=== PATIENT | female | born 1935 | race Caucasian/White ===

== ENCOUNTER 2018-06-10 12:04 | Inpatient (IN) | payer OTHER ==
[2018-06-10] MEDS ORDERED: ACETAMINOPHEN 325 MG TAB PO PRN (14:24)
--- NOTE | 2018-06-10 15:58 | GHP ---
[f rep st] HISTORY AND PHYSICAL POST ADMISSION PHYSICIAN EVALUATION AND REHABILITATION TREATMENT PLAN DATE OF ADMISSION: 06/10/2018 DATE OF EVALUATION: 06/10/2018. TIME OF EVALUATION: 1335 hours. REFERRING FACILITY: [facility]. REFERRING PHYSICIAN: Dr. Gonzalez IMPAIRMENT GROUP: 1.1. DATE OF ONSET: 06/04/2008. CONSULTING PHYSICIAN: She was seen by neurologist, Dr. Beckford. 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 ETIOLOGIC DIAGNOSIS: Left body involvement (right brain) HISTORY OF PRESENT ILLNESS: This patient was admitted to [facility] on 06/04/2018, with a 2-day history of left-sided facial droop, left-sided weakness and slurred speech. Head CT ruled out intracranial hemorrhage and CT angiogram ruled out large vessel blockage. She had a brain MRI, which showed an acute lacunar infarction in the right posterior internal capsule. Further evaluation included an echocardiogram which ruled out an intracardiac shunt and showed an ejection fraction of 60% to 65%. She had trivial mitral and tricuspid valve regurgitation. There were no dysrhythmias seen on telemonitoring. With a 2-day history of prior symptoms, she was out of the window for thrombolytics. She was seen by Neurology and begun on aspirin at 81 mg per day and clopidogrel 75 mg daily for 1 month. Following that month, she is to stop the clopidogrel and continue aspirin at 325 mg daily. She was started on atorvastatin. Hospital discharge was delayed for a day pending insurance approval, but she was medically stable and finally approved to come to inpatient rehabilitation. LABORATORIES AND STUDIES: During her stay: CBC on 06/09 was completely normal. CBC was also normal on the day of admission, 06/10/2018. Basic metabolic profile on 06/04/2018 was overall within normal limits. She had a slightly elevated glucose at 109, but this was likely not fasting. Liver function tests were normal. Lipid panel showed total cholesterol of 149, an HDL of 44 and an LDL of 98. Troponin was negative. CBC and basic metabolic profile were also unremarkable on 06/07/2018. PRECAUTIONS: She is a fall risk. ACTIVE COMORBIDITIES: She has the tier 3 comorbidity of hemiparesis with left- sided weakness and morbid obesity plus hypertension. She otherwise has no tier 1, tier 2 or tier 3 comorbidities. PAST MEDICAL HISTORY: 1. Hypertension. 2. Seasonal allergies, which she has year-round. 3. Gastroesophageal reflux disorder. 4. Irritable bowel syndrome. 5. Degenerative joint disease. PAST SURGICAL HISTORY: 1. Cholecystectomy. 2. Hysterectomy. 3. Bilateral knee replacement. 4. Tonsillectomy. PRE-HOSPITAL MEDICATIONS: 1. Aspirin 81 mg p.o. daily. 2. Cetirizine 10 mg p.o. at bedtime. 3. Fexofenadine 100 mg p.o. daily. She reports she alternates with cetirizine every few months. 4. Fluoxetine 40 mg p.o. daily. 5. Metoprolol succinate 50 mg p.o. daily. 6. Multivitamin 1 p.o. daily. 7. Naphazoline/pheniramine 1 drop both eyes twice daily as needed for allergy symptoms. 8. Naproxen 440 mg p.o. daily p.r.n. 9. Omeprazole/sodium bicarbonate 1 capsule p.o. before breakfast. ADMISSION MEDICATIONS: 1. Aspirin 81 mg p.o. daily. 2. Atorvastatin 10 mg p.o. at bedtime. 3. Cetirizine 200 mg p.o. at bedtime. 4. Clopidogrel 75 mg p.o. daily, which should continue through 07/03. 5. Fluoxetine 40 mg p.o. daily. 6. Metoprolol succinate 50 mg p.o. daily. 7. Multivitamin 1 p.o. daily. 8. Naphazoline/pheniramine 1 drop each eye twice daily p.r.n. 9. Pantoprazole 20 mg p.o. daily. ALLERGIES: There are no known drug allergies. SOCIAL HISTORY: She lives alone. She has a local daughter. She is a . She had 5 children. 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 She does not use alcohol, tobacco, or other recreational drugs. FAMILY HISTORY: Her father had a stroke. REVIEW OF SYSTEMS: She reports a dry mouth. She has a broken tooth from the fall. She reports that she feels tired and can fall asleep at any time. She, however, reports that she sleeps well, though she was interrupted in the hospital for hospital cares. She is not in pain. She denies cough or dyspnea. She denies nausea, vomiting, constipation, or diarrhea. She denies dysuria or urinary frequency. She denies joint pain or joint swelling. She is aware of some weakness on the left side and of the left facial droop. She is also aware of slurred speech and difficulty finding words. Otherwise, a 10-point review of systems is negative. PHYSICAL EXAMINATION: VITAL SIGNS: Vitals are not yet available in the chart. GENERAL: This is an obese woman, appears her chronologic age, sitting in a chair, dressed in street clothes cooperative and in no distress. HEENT: Extraocular movements are intact. Pupils are equal, round, reactive to light. Dentition is in good condition except for a broken left upper incisor. She has a moderately crowded airway, Mallampati class 3. NECK: Supple. HEART: There is a regular rate and rhythm with no murmurs, rubs, or gallops. There is no JVD and no edema. LUNGS: Clear to auscultation bilaterally. ABDOMEN: Soft, nontender, normoactive bowel sounds, non-distended, no hepatosplenomegaly. EXTREMITIES: There is no cyanosis, clubbing, or edema. Radial and dorsalis pedis pulses are 2+ bilaterally. NEUROLOGIC: She is alert and oriented x3. She has a left facial droop which is more likely due to her infarct than to any cranial nerves abnormalities. Cranial nerves 2-12 are otherwise grossly intact. Her strength is 4+/5 at the left hand peoplesoft developer and otherwise 5/5 overall on the left and right upper extremities. In the lower extremities, strength is 4/5 on the left hip flexor and quadriceps and hamstrings. Otherwise, strength is 5/5 overall in the lower extremities. Sensation is intact to light touch. Deep tendon reflexes are 2+ bilaterally at the biceps, patellar, and Achilles tendons. Plantar reflex is indeterminate. There is no pronator drift. Finger- to-nose testing reveals slow movement and minor inaccuracy with the left upper extremity and is normal in the right upper extremity. CURRENT LEVEL OF FUNCTION: Per the pre-admission screen, she was on a regular diet with thin liquids. She required contact guard assist for transfers for ADLs. Bed mobility was independent with the head of the bed flat. Transfers required minimal assist with voice cues for using a front-wheeled walker. She scored 14/28 on the Tinetti Balance Test, corresponding with a high fall risk. Endurance was. Sair she was able to ambulate 250 feet with contact guard to minimal assist and voice cues to medicinal plant picker her left lower extremity because of a left foot drag. She needed assistance to maneuver the front-wheeled walker. Regarding cognition, she was noted to have a decreased memory. On today's exam, there are no significant changes per the pre-admission screen. IMPRESSION: This is an 83-year-old woman who suffered a right posterior internal capsule cerebrovascular accident and presented to [facility] on 06/04/2018, after 2 days of symptoms. She also suffered a fall in which she broke her left upper incisor. Evaluation ruled out cardiac source of embolus. Aspirin dose was augmented with clopidogrel 75 mg daily, which is to be continued through 07/03/2018, after which she is to discontinue clopidogrel and increase aspirin to 325 mg daily. She was also begun on atorvastatin. She needed no augmentation of her metoprolol for blood pressure control. She was participating in therapies and appropriate for inpatient rehabilitation. Her goal is to complete a rehabilitation stay, and then return home with support of her family and supportive services. For a safe discharge, she will need to be able to advance to the supervision level for bathing and stairs and independence for all other ADLs and mobility. She will be using the least restrictive device for ambulation. She will have insights into her cognitive deficits, and she will need to be able to use compensatory strategies. She will have therapies with Physical Therapy, Occupational Therapy, and Speech and Language Pathology for 60 minutes per day on 5-7 days of the week for each discipline. Her expected duration of stay is 5-7 days. It is anticipated that upon discharge, she will continue to benefit from home health services including a nurse, Speech and Language Pathology, Occupational Therapy, and Physical Therapy. Additionally, she will likely benefit from a stroke support group. PLAN: 1. Right posterior internal capsule CVA with left weakness and reduced balance and fall risk. PT and OT to optimize mobility and activities of daily living towards the supervision to independent level. 2. Memory loss and possibly other cognitive issues. These may be preexisting as she had severe microvascular ischemic change on CT brain imaging. She will have evaluation and treatment per Speech and Language Pathology. 3. Secondary prevention of CVA. Continue blood pressure control with metoprolol, continue atorvastatin, continue aspirin at 81 mg and clopidogrel at 75 mg daily through 07/03, after which she is to stop the clopidogrel and increase the aspirin dose to 325 mg. 4. Allergic conjunctivitis and rhinitis. Continue medications with cetirizine 20 mg at bedtime and with naphazoline/pheniramine eyedrops as needed. 5. Gastroesophageal reflux disorder and irritable bowel syndrome. She was previously on a combination of omeprazole and sodium bicarbonate. Per hospital formulary, we will substitute pantoprazole 40 mg daily and sodium bicarbonate 650 g daily. As is her usual practice at home, these will be dosed at 6 in the morning, approximately 2 hours prior to breakfast. 6. Anxiety/depression. Continue fluoxetine, which may also aid in neuro recovery post CVA. 7. Degenerative joint disease, status post bilateral knee replacements. She was previously taking naproxen, but now that she is also on aspirin plus clopidogrel, NSAIDs are relatively contraindicated. We will prescribe acetaminophen 650 mg q.6 hours p.r.n. 8. Somnolence. Unclear history whether the extent to which this was pre- existing. During history taking, she initially reported that she did not nap at home and then she reported that she does nap at home. She will be observed for adequacy of sleep and for sufficient alertness through the day to participate in therapies. FOLLOWUP: She is to see Dr. Beckford, Neurology, in 3-4 weeks. Primary care provider is Mariam Chiang, Nurse Practitioner. /[id number]/MODL MTDD
[2018-06-10] MEDS: CETIRIZINE 10 MG TAB PO SCH (20:55)
[2018-06-10] MEDS: ATORVASTATIN CALCIUM 10 MG TAB PO SCH (20:55)
[2018-06-11] MEDS: SODIUM BICARBONATE 650 MG TAB PO SCH (05:12)
[2018-06-11] MEDS: PANTOPRAZOLE SODIUM 40 MG TAB PO SCH (05:13)
[2018-06-11] MEDS: MULTIVITAMINS 1 EACH TAB PO SCH (08:42)
[2018-06-11] MEDS: CLOPIDOGREL BISULFATE 75 MG TAB PO SCH (08:42)
[2018-06-11] MEDS: METOPROLOL SUCCINATE XR 50 MG TAB PO SCH (08:42)
[2018-06-11] MEDS: ASPIRIN 81 MG CHEWABLE TAB PO SCH (08:42)
[2018-06-11] MEDS: FLUoxetine 20 MG CAP PO SCH (08:42)
[2018-06-11] MEDS ORDERED: PANTOPRAZOLE SODIUM 40 MG TAB PO SCH (09:00)
--- NOTE | 2018-06-11 12:07 | SOAPPROG ---
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 PT and OT to optimize mobility and activities of daily living towards the supervision to independent level. Memory loss and possibly other cognitive issues. These may be preexisting as she had severe microvascular ischemic change on CT brain imaging. She will have evaluation and treatment per Speech and Language Pathology. * She is not on any sedating medications. Secondary prevention of CVA. Continue blood pressure control with metoprolol, continue atorvastatin, continue aspirin at 81 mg and clopidogrel at 75 mg daily through 07/03, after which she is to stop the clopidogrel and increase the aspirin dose to 325 mg. Allergic conjunctivitis and rhinitis. Continue medications with cetirizine 20 mg at bedtime and with naphazoline/pheniramine eyedrops as needed. Gastroesophageal reflux disorder and irritable bowel syndrome. She was previously on a combination of omeprazole and sodium bicarbonate. Per hospital formulary, we will substitute pantoprazole 40 mg daily and sodium bicarbonate 650 g daily. As is her usual practice at home, these will be dosed at 6 in the morning, approximately 2 hours prior to breakfast. Anxiety/depression. Continue fluoxetine, which may also aid in neuro recovery post CVA. Degenerative joint disease, status post bilateral knee replacements. She was previously taking naproxen, but now that she is also on aspirin plus clopidogrel , NSAIDs are relatively contraindicated. We will prescribe acetaminophen 650 mg q.6 hours p.r.n. Somnolence. Unclear history whether the extent to which this was pre-existing. During history taking, she initially reported that she did not nap at home and then she reported that she does nap at home. She will be observed for adequacy of sleep and for sufficient alertness through the day to participate in therapies. FOLLOWUP: She is to see Dr. Beckford, Neurology, in 3-4 weeks. Primary care provider is Mariam Chiang, Nurse Practitioner. 06/11/18 14:02 Subjective: Complains of feeling foggy, and having word-finding difficulty. She reports she slept well. No fevers or chills, no cough or dyspnea, no dysuria. Objective: Vital Signs Temp Pulse Resp BP Pulse Ox 36.4 C 64 16 131/75 H 96 06/11/18 08:40 06/11/18 08:42 06/11/18 08:40 06/11/18 08:42 06/11/18 08:40 06/10/18 06/11/18 06/12/18 05:59 05:59 05:59 Intake Total 560 480 Output Total 1100 Balance -540 480 Physical Exam - Physical Exam General Appearance: WD/WN, alert, no apparent distress Respiratory: normal breath sounds, No crackles, No rhonchi, No wheezing Cardiac/Chest: regular rate, rhythm, No edema, No diastolic murmur, No systolic murmur Skin: normal color, warm/dry Neuro/Psych: alert, normal mood/affect, oriented x 3 ICD10 Worksheet Patient Problems: Problems Problem Status Onset Cerebrovascular accident (CVA) of right basal ganglia Acute
--- NOTE | 2018-06-11 12:08 | PDOREHIP ---
Admission [facility] - Admission - 3 Day Assessment Period Admission Date/Day 1: 06/10/18 Day 2: 06/11/18 Day 3: 06/12/18 - Active Diagnoses Comorbidities and Co-existing Conditions at Admission: 21361. None of the Above - Skin Conditions Unhealed Pressure Ulcer (1 or more/Stage 1 or >)-Admission: 0. No # Stage 1 Pressure Ulcers-Admission: 0 # Stage 2 Pressure Ulcers-Admission: 0 # Stage 3 Pressure Ulcers-Admission: 0 # Stage 4 Pressure Ulcers-Admission: 0 # Unstageable Pressure Ulcers (Non-remove Dress)-Admission: 0 # Unstageable Pressure Ulcers (Slough/Eschar)-Admission: 0 # Unstageable Pressure Ulcers (Deep Tissue Injury)-Admission: 0
[2018-06-11] MEDS: CETIRIZINE 10 MG TAB PO SCH (20:09)
[2018-06-11] MEDS: ATORVASTATIN CALCIUM 10 MG TAB PO SCH (20:10)
[2018-06-12] MEDS: PANTOPRAZOLE SODIUM 40 MG TAB PO SCH (06:26)
[2018-06-12] MEDS: SODIUM BICARBONATE 650 MG TAB PO SCH (06:26)
[2018-06-12] MEDS: ASPIRIN 81 MG CHEWABLE TAB PO SCH (09:06)
[2018-06-12] MEDS: MULTIVITAMINS 1 EACH TAB PO SCH (09:07)
[2018-06-12] MEDS: CLOPIDOGREL BISULFATE 75 MG TAB PO SCH (09:07)
[2018-06-12] MEDS: FLUoxetine 20 MG CAP PO SCH (09:07)
[2018-06-12] MEDS: METOPROLOL SUCCINATE XR 50 MG TAB PO SCH (09:08)
--- NOTE | 2018-06-12 10:27 | SOAPPROG ---
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 * Contact guard assist for mobility related ADLs. Has left foot drop with ambulation. * Continue PT and OT to optimize mobility and activities of daily living towards the supervision to independent level. Memory loss and possibly other cognitive issues. These may be preexisting as she had severe microvascular ischemic change on CT brain imaging. * She is not on any sedating medications. * MOCA on 06/11/2018 * Continue CLUBHOUSE MANAGER. Secondary prevention of CVA. Continue blood pressure control with metoprolol, continue atorvastatin, continue aspirin at 81 mg and clopidogrel at 75 mg daily through 07/03, after which she is to stop the clopidogrel and increase the aspirin dose to 325 mg. Allergic conjunctivitis and rhinitis. Continue medications with cetirizine 20 mg at bedtime and with naphazoline/pheniramine eyedrops as needed. Gastroesophageal reflux disorder and irritable bowel syndrome. She was previously on a combination of omeprazole and sodium bicarbonate. Per hospital formulary, we will substitute pantoprazole 40 mg daily and sodium bicarbonate 650 g daily. As is her usual practice at home, these will be dosed at 6 in the morning, approximately 2 hours prior to breakfast. Anxiety/depression. Continue fluoxetine, which may also aid in neuro recovery post CVA. Degenerative joint disease, status post bilateral knee replacements. She was previously taking naproxen, but now that she is also on aspirin plus clopidogrel , NSAIDs are relatively contraindicated. Continue acetaminophen 650 mg q.6 hours p.r.n.; not used. Somnolence. Unclear history whether the extent to which this was pre-existing. During history taking, she initially reported that she did not nap at home and then she reported that she does nap at home. She will be observed for adequacy of sleep and for sufficient alertness through the day to participate in therapies. FOLLOWUP: She is to see Dr. Beckford, Neurology, in 3-4 weeks. Primary care provider is Mariam Chiang, Nurse Practitioner. 06/12/18 10:24 Subjective: No complaints. Not in pain. Sleeping well. No cough or dyspnea, no fevers or chills. Objective: Vital Signs Temp Pulse Resp BP Pulse Ox 36.4 C 72 16 107/65 94 06/12/18 06:27 06/12/18 09:08 06/12/18 06:27 06/12/18 09:08 06/12/18 06:27 06/11/18 06/12/18 06/13/18 05:59 05:59 05:59 Intake Total 560 1760 Output Total 1100 600 Balance -540 1160 Physical Exam - Physical Exam General Appearance: WD/WN, alert, no apparent distress Respiratory: No respiratory distress, No accessory muscle use Cardiac/Chest: regular rate, rhythm, No edema, No diastolic murmur, No systolic murmur Skin: normal color, warm/dry Neuro/Psych: alert, normal mood/affect, oriented x 3 ICD10 Worksheet Patient Problems: Problems Problem Status Onset Cerebrovascular accident (CVA) of right basal ganglia Acute
[2018-06-12] MEDS: CETIRIZINE 10 MG TAB PO SCH (19:20)
[2018-06-12] MEDS: ATORVASTATIN CALCIUM 10 MG TAB PO SCH (19:20)
[2018-06-13] MEDS: PANTOPRAZOLE SODIUM 40 MG TAB PO SCH (05:39)
[2018-06-13] MEDS: SODIUM BICARBONATE 650 MG TAB PO SCH (05:39)
[2018-06-13] MEDS: METOPROLOL SUCCINATE XR 50 MG TAB PO SCH (08:40)
[2018-06-13] MEDS: FLUoxetine 20 MG CAP PO SCH (08:40)
[2018-06-13] MEDS: CLOPIDOGREL BISULFATE 75 MG TAB PO SCH (08:41)
[2018-06-13] MEDS: MULTIVITAMINS 1 EACH TAB PO SCH (08:41)
[2018-06-13] MEDS: ASPIRIN 81 MG CHEWABLE TAB PO SCH (08:41)
--- NOTE | 2018-06-13 12:06 | HOSPPROG ---
Hospitalist Progress Note Assessment/Plan: Right posterior internal capsule CVA with left weakness and reduced balance and fall risk. * Contact guard assist for mobility related ADLs. Has left foot drop with ambulation. * Continue PT and OT to optimize mobility and activities of daily living towards the supervision to independent level. Memory loss and possibly other cognitive issues. These may be preexisting as she had severe microvascular ischemic change on CT brain imaging. * She is not on any sedating medications. * MOCA on 06/11/2018 * Continue BUCKLE STAPLER. Secondary prevention of CVA. Continue blood pressure control with metoprolol, continue atorvastatin, continue aspirin at 81 mg and clopidogrel at 75 mg daily through 07/03, after which she is to stop the clopidogrel and increase the aspirin dose to 325 mg. Allergic conjunctivitis and rhinitis. Continue medications with cetirizine 20 mg at bedtime and with naphazoline/pheniramine eyedrops as needed. Gastroesophageal reflux disorder and irritable bowel syndrome. She was previously on a combination of omeprazole and sodium bicarbonate. Per hospital formulary, we will substitute pantoprazole 40 mg daily and sodium bicarbonate 650 g daily. As is her usual practice at home, these will be dosed at 6 in the morning, approximately 2 hours prior to breakfast. Anxiety/depression. Continue fluoxetine, which may also aid in neuro recovery post CVA. Degenerative joint disease, status post bilateral knee replacements. She was previously taking naproxen, but now that she is also on aspirin plus clopidogrel , NSAIDs are relatively contraindicated. Continue acetaminophen 650 mg q.6 hours p.r.n.; not used. Somnolence. Unclear history whether the extent to which this was pre-existing. During history taking, she initially reported that she did not nap at home and then she reported that she does nap at home. She will be observed for adequacy of sleep and for sufficient alertness through the day to participate in therapies. FOLLOWUP: She is to see Dr. Beckford, Neurology, in 3-4 weeks. Primary care provider is Mariam Chiang, Nurse Practitioner. Subjective: feeling sleepy for last few days Objective: Vital Signs Temp Pulse Resp BP Pulse Ox 36.5 C 70 14 132/80 H 92 06/13/18 05:44 06/13/18 08:40 06/13/18 05:44 06/13/18 08:40 06/13/18 05:44 06/12/18 06/13/18 06/14/18 05:59 05:59 05:59 Intake Total 1760 840 480 Output Total 600 0 Balance 1160 840 480 - Physical Exam Constitutional: no apparent distress, appears nourished, not in pain Eyes: anicteric sclera Ears, Nose, Mouth, Throat: moist mucous membranes Cardiovascular: regular rate and rhythym, no murmur, rub, or gallop Respiratory: no respiratory distress, no rales or rhonchi Gastrointestinal: normoactive bowel sounds, soft, non-tender abdomen, no palpable masses Skin: warm Musculoskeletal: full muscle strength, no muscle tenderness, normal joint ROM ICD10 Worksheet Patient Problems: Problems Problem Status Onset Cerebrovascular accident (CVA) of right basal ganglia Acute
[2018-06-13] MEDS: ATORVASTATIN CALCIUM 10 MG TAB PO SCH (20:07)
[2018-06-14] MEDS: PANTOPRAZOLE SODIUM 40 MG TAB PO SCH (05:47)
[2018-06-14] MEDS: SODIUM BICARBONATE 650 MG TAB PO SCH (05:47)
[2018-06-14] MEDS: ASPIRIN 81 MG CHEWABLE TAB PO SCH (08:30)
[2018-06-14] MEDS: FLUoxetine 20 MG CAP PO SCH (08:30)
[2018-06-14] MEDS: METOPROLOL SUCCINATE XR 50 MG TAB PO SCH (08:30)
[2018-06-14] MEDS: MULTIVITAMINS 1 EACH TAB PO SCH (08:30)
[2018-06-14] MEDS: CLOPIDOGREL BISULFATE 75 MG TAB PO SCH (08:30)
[2018-06-14] MEDS ORDERED: CETIRIZINE 10 MG TAB PO SCH (15:41)
--- NOTE | 2018-06-14 15:41 | HOSPPROG ---
Hospitalist Progress Note Assessment/Plan: Right posterior internal capsule CVA with left weakness and reduced balance and fall risk. * Contact guard assist for mobility related ADLs. Has left foot drop with ambulation. * Continue PT and OT to optimize mobility and activities of daily living towards the supervision to independent level. Memory loss and possibly other cognitive issues. These may be preexisting as she had severe microvascular ischemic change on CT brain imaging. * She is not on any sedating medications. * MOCA on 06/11/2018 * Continue COUNTER POCKET SEWER. Secondary prevention of CVA. Continue blood pressure control with metoprolol, continue atorvastatin, continue aspirin at 81 mg and clopidogrel at 75 mg daily through 07/03, after which she is to stop the clopidogrel and increase the aspirin dose to 325 mg. Allergic conjunctivitis and rhinitis. Continue medications with cetirizine 20 mg at bedtime and with naphazoline/pheniramine eyedrops as needed. * WILL DECREASE ZYRTEC DOSE TO 10MG IN CASE CONTRIBUTING TO DAYTIME FATIGUE. MAX DOSE IS 10 MG Gastroesophageal reflux disorder and irritable bowel syndrome. She was previously on a combination of omeprazole and sodium bicarbonate. Per hospital formulary, we will substitute pantoprazole 40 mg daily and sodium bicarbonate 650 g daily. As is her usual practice at home, these will be dosed at 6 in the morning, approximately 2 hours prior to breakfast. Anxiety/depression. Continue fluoxetine, which may also aid in neuro recovery post CVA. Degenerative joint disease, status post bilateral knee replacements. She was previously taking naproxen, but now that she is also on aspirin plus clopidogrel , NSAIDs are relatively contraindicated. Continue acetaminophen 650 mg q.6 hours p.r.n.; not used. Somnolence. Unclear history whether the extent to which this was pre-existing. During history taking, she initially reported that she did not nap at home and then she reported that she does nap at home. She will be observed for adequacy of sleep and for sufficient alertness through the day to participate in therapies. FOLLOWUP: She is to see Dr. Beckford, Neurology, in 3-4 weeks. Primary care provider is Mariam Chiang, Nurse Practitioner. Subjective: had headache but is better. maybe less sleepy today Objective: Vital Signs Temp Pulse Resp BP Pulse Ox 36.5 C 64 14 124/82 H 97 06/14/18 05:48 06/14/18 08:30 06/14/18 05:48 06/14/18 08:30 06/14/18 05:48 06/13/18 06/14/18 06/15/18 05:59 05:59 05:59 Intake Total 840 1430 360 Output Total 0 910 Balance 840 520 360 - Physical Exam Constitutional: no apparent distress, appears nourished, not in pain Eyes: anicteric sclera Ears, Nose, Mouth, Throat: moist mucous membranes, hearing normal, ears appear normal, no oral mucosal ulcers Cardiovascular: regular rate and rhythym, no murmur, rub, or gallop Respiratory: no respiratory distress, no rales or rhonchi, clear to auscultation Gastrointestinal: normoactive bowel sounds, soft, non-tender abdomen, no palpable masses Skin: warm Neurologic: AAOx3 Psychiatric: interacting appropriately, not anxious, not encephalopathic, thought process linear ICD10 Worksheet Patient Problems: Problems Problem Status Onset Cerebrovascular accident (CVA) of right basal ganglia Acute
[2018-06-14] MEDS: ATORVASTATIN CALCIUM 10 MG TAB PO SCH (20:22)
[2018-06-15] MEDS: SODIUM BICARBONATE 650 MG TAB PO SCH (05:47)
[2018-06-15] MEDS: PANTOPRAZOLE SODIUM 40 MG TAB PO SCH (05:47)
[2018-06-15] MEDS: ASPIRIN 81 MG CHEWABLE TAB PO SCH (08:19)
[2018-06-15] MEDS: FLUoxetine 20 MG CAP PO SCH (08:19)
[2018-06-15] MEDS: CLOPIDOGREL BISULFATE 75 MG TAB PO SCH (08:19)
[2018-06-15] MEDS: MULTIVITAMINS 1 EACH TAB PO SCH (08:19)
[2018-06-15] MEDS: METOPROLOL SUCCINATE XR 50 MG TAB PO SCH (08:19)
--- NOTE | 2018-06-15 10:54 | SOAPPROG ---
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 * Independent with bed mobility. Sometimes impulsive at the edge of the bed. Transfers with standby assist to supervision level, cues for hand placement and use of front wheeled walker. Ambulated 300 ft with a front wheeled walker and supervision. Left-sided weakness worsens with fatigue. Climbed and is and descended 18 stairs with standby assist to contact guard assist. Has decreased insight. Standby assist for grooming and hygiene, dressing, shower transfer. Contact guard to standby assist for bathing. Has left foot drop with ambulation. * Continue PT and OT to optimize mobility and activities of daily living towards the supervision to independent level. Memory loss and possibly other cognitive issues. These may be preexisting as she had severe microvascular ischemic change on CT brain imaging. * She is not on any sedating medications. * MOCA on 06/11/2018 * Continue ELEVATOR EXAMINER AND ADJUSTER. Secondary prevention of CVA. Continue blood pressure control with metoprolol, continue atorvastatin, continue aspirin at 81 mg and clopidogrel at 75 mg daily through 07/03, after which she is to stop the clopidogrel and increase the aspirin dose to 325 mg. Allergic conjunctivitis and rhinitis. Cetirizine was reduced from 20 mg at HS to 10 mg at HS due to possible sedating effect. Continue naphazoline/ pheniramine eyedrops as needed. Gastroesophageal reflux disorder and irritable bowel syndrome. She was previously on a combination of omeprazole and sodium bicarbonate. Per hospital formulary, we will substitute pantoprazole 40 mg daily and sodium bicarbonate 650 g daily. As is her usual practice at home, these will be dosed at 6 in the morning, approximately 2 hours prior to breakfast. Anxiety/depression. Continue fluoxetine, which may also aid in neuro recovery post CVA. Degenerative joint disease, status post bilateral knee replacements. She was previously taking naproxen, but now that she is also on aspirin plus clopidogrel , NSAIDs are relatively contraindicated. Continue acetaminophen 650 mg q.6 hours p.r.n.; not used. Somnolence. Improved DISPOSITION: Attended staffing, 15 min. Discussed with case management, nursing, dietitian, PT, OT, ELEVATOR EXAMINER AND ADJUSTER. Lives independently with son living in basement. Family members are intermittently available to help but will provide sufficient supervision. Discharge date set for 06/17/2018. FOLLOWUP: She is to see Dr. Beckford, Neurology, in 3-4 weeks. Primary care provider is Mariam Chiang, Nurse Practitioner. 06/15/18 10:55 Subjective: Complains of her nose running. Reiterates that she typically switches from cetirizine to fexofenadine when 1 stops working. Otherwise without complaints. No cough or dyspnea, no fevers or chills. Objective: Vital Signs Temp Pulse Resp BP Pulse Ox 36.6 C 57 L 16 139/84 H 93 06/15/18 06:07 06/15/18 06:07 06/15/18 06:07 06/15/18 06:07 06/15/18 06:07 06/14/18 06/15/18 06/16/18 05:59 05:59 05:59 Intake Total 1430 1040 Output Total 910 275 Balance 520 765 - Time Spent With Patient Time Spent With Patient: Greater than 35 min floor time today, including more than 50% of time in coordination of care during staffing meeting, and counseling patient. Physical Exam - Physical Exam General Appearance: WD/WN, alert, no apparent distress Respiratory: normal breath sounds, No crackles, No rhonchi, No wheezing Cardiac/Chest: regular rate, rhythm, other (Occasional missed beats on an irregular cycle), No JVD, No diastolic murmur, No systolic murmur Skin: normal color, warm/dry Neuro/Psych: alert, normal mood/affect, oriented x 3, abnormal gait (Left foot drag), facial droop (Mild left facial droop) ICD10 Worksheet Patient Problems: Problems Problem Status Onset Cerebrovascular accident (CVA) of right basal ganglia Acute
[2018-06-15] MEDS: ATORVASTATIN CALCIUM 10 MG TAB PO SCH (20:31)
[2018-06-16] MEDS: SODIUM BICARBONATE 650 MG TAB PO SCH (05:46)
[2018-06-16] MEDS: PANTOPRAZOLE SODIUM 40 MG TAB PO SCH (05:46)
[2018-06-16] MEDS: MULTIVITAMINS 1 EACH TAB PO SCH (08:02)
[2018-06-16] MEDS: CLOPIDOGREL BISULFATE 75 MG TAB PO SCH (08:03)
[2018-06-16] MEDS: METOPROLOL SUCCINATE XR 50 MG TAB PO SCH (08:03)
[2018-06-16] MEDS: FLUoxetine 20 MG CAP PO SCH (08:03)
[2018-06-16] MEDS: ASPIRIN 81 MG CHEWABLE TAB PO SCH (08:08)
[2018-06-16] MEDS: NAPHAZOLINE HCL/PHENIR 15 ML OPHT.BTL EACHEYE PRN (11:14)
--- NOTE | 2018-06-16 12:51 | SOAPPROG ---
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 * Independent with bed mobility. Sometimes impulsive at the edge of the bed. Transfers with standby assist to supervision level, cues for hand placement and use of front wheeled walker. Ambulated 300 ft with a front wheeled walker and supervision. Left-sided weakness worsens with fatigue. Climbed and is and descended 18 stairs with standby assist to contact guard assist. Has decreased insight. Standby assist for grooming and hygiene, dressing, shower transfer. Contact guard to standby assist for bathing. Has left foot drop with ambulation. * Continue PT and OT to optimize mobility and activities of daily living towards the supervision to independent level. Memory loss and possibly other cognitive issues. These may be preexisting as she had severe microvascular ischemic change on CT brain imaging. * She is not on any sedating medications. * MOCA on 06/11/2018 * Continue PINION STAKER. Secondary prevention of CVA. Continue blood pressure control with metoprolol, continue atorvastatin, continue aspirin at 81 mg and clopidogrel at 75 mg daily through 07/03, after which she is to stop the clopidogrel and increase the aspirin dose to 325 mg. Allergic conjunctivitis and rhinitis. Cetirizine was reduced from 20 mg at HS to 10 mg at HS due to possible sedating effect. Continue naphazoline/ pheniramine eyedrops as needed. Gastroesophageal reflux disorder and irritable bowel syndrome. She was previously on a combination of omeprazole and sodium bicarbonate. Per hospital formulary, we will substitute pantoprazole 40 mg daily and sodium bicarbonate 650 g daily. As is her usual practice at home, these will be dosed at 6 in the morning, approximately 2 hours prior to breakfast. Anxiety/depression. Continue fluoxetine, which may also aid in neuro recovery post CVA. Degenerative joint disease, status post bilateral knee replacements. She was previously taking naproxen, but now that she is also on aspirin plus clopidogrel , NSAIDs are relatively contraindicated. Continue acetaminophen 650 mg q.6 hours p.r.n.; not used. Somnolence. Improved DISPOSITION: Lives independently with son living in basement. Family members are intermittently available to help but will provide sufficient supervision. Discharge date set for 06/17/2018. Will have home PT, OT and PINION STAKER. FOLLOWUP: She is to see Dr. Beckford, Neurology, in 3-4 weeks. Primary care provider is Mariam Chiang, Nurse Practitioner. 06/16/18 12:57 Subjective: Complains of fatigue at unpredictable times through the day. Sleeps well and awakens refreshed. Not in pain, no fevers or chills, no cough or dyspnea. Feels she is recover use of her left arm but still has some weakness in the left leg Objective: Vital Signs Temp Pulse Resp BP Pulse Ox 36.8 C 65 16 119/98 H 93 06/16/18 05:44 06/16/18 08:03 06/16/18 05:44 06/16/18 08:03 06/16/18 05:44 06/15/18 06/16/18 06/17/18 05:59 05:59 05:59 Intake Total 1040 240 460 Output Total 275 200 Balance 765 40 460 Physical Exam - Physical Exam General Appearance: WD/WN, alert, no apparent distress Respiratory: No respiratory distress, No accessory muscle use Skin: normal color, warm/dry Neuro/Psych: alert, normal mood/affect, oriented x 3 ICD10 Worksheet Patient Problems: Problems Problem Status Onset Cerebrovascular accident (CVA) of right basal ganglia Acute
[2018-06-16] MEDS: ATORVASTATIN CALCIUM 10 MG TAB PO SCH (19:59)
[2018-06-17] MEDS: PANTOPRAZOLE SODIUM 40 MG TAB PO SCH (05:29)
[2018-06-17] MEDS: SODIUM BICARBONATE 650 MG TAB PO SCH (05:29)
[2018-06-17] MEDS: FLUoxetine 20 MG CAP PO SCH (08:22)
[2018-06-17] MEDS: MULTIVITAMINS 1 EACH TAB PO SCH (08:22)
[2018-06-17] MEDS: CLOPIDOGREL BISULFATE 75 MG TAB PO SCH (08:22)
[2018-06-17] MEDS: ASPIRIN 81 MG CHEWABLE TAB PO SCH (08:22)
[2018-06-17] MEDS: METOPROLOL SUCCINATE XR 50 MG TAB PO SCH (08:30)
[2018-06-17 08:31] VITALS: BP 126/73
--- NOTE | 2018-06-17 10:37 | PDOREHIP ---
Admission [facility] - Admission - 3 Day Assessment Period Admission Date/Day 1: 06/10/18 Day 2: 06/11/18 Day 3: 06/12/18 - Active Diagnoses Comorbidities and Co-existing Conditions at Admission: 41748. None of the Above Discharge [facility] - Discharge - 3 Day Assessment Period 2 Days Prior to Anticipated Discharge Date: 06/15/18 1 Day Prior to Anticipated Discharge Date: 06/16/18 Anticipated Discharge Date: 06/17/18 - Discharge Skin Conditions Unhealed Pressure Ulcer (1 or more/Stage 1 or >)-Discharge: 0. No # Stage 1 Pressure Ulcers-Discharge: 0 # Stage 2 Pressure Ulcers-Discharge: 0 # of These Stage 2 Pressure Ulcers Present on Admission: 0 # Stage 3 Pressure Ulcers-Discharge: 0 # of These Stage 3 Pressure Ulcers Present on Admission: 0 # Stage 4 Pressure Ulcers-Discharge: 0 # of These Stage 4 Pressure Ulcers Present on Admission: 0 # Unstageable Pressure Ulcers (Non-remove Dress)-Discharge: 0 # These Unstageable Pressure Ulcers (NRD)-Present on Admit: 0 # Unstageable Pressure Ulcers (Slough/Eschar)-Discharge: 0 # These Unstageable Pressure Ulcers(Slough) Present on Admit: 0 # Unstageable Pressure Ulcers (Deep Tissue Injury)-Discharge: 0 # These Unstageable Pressure Ulcers (DTI) Present on Admit: 0
[2018-06-17] MEDS: NAPHAZOLINE HCL/PHENIR 15 ML OPHT.BTL EACHEYE PRN (13:12)
--- NOTE | 2018-06-17 19:38 | GDS ---
[f rep st] DISCHARGE SUMMARY ADMITTING DIAGNOSIS: Cerebrovascular accident of the right posterior internal capsule with left upper and lower extremity weakness and ataxia. DISCHARGE DIAGNOSIS: Cerebrovascular accident of the right posterior internal capsule with left upper and lower extremity weakness and ataxia. OTHER DIAGNOSES: 1. Cognitive impairment. 2. Allergic rhinitis and conjunctivitis. 3. Gastroesophageal reflux disorder. 4. Anxiety/depression. 5. Degenerative joint disease. COMPLICATIONS: There were none. PROCEDURES: There were none. CONSULTATIONS: There were none. HISTORY AND HOSPITAL COURSE: This patient was admitted from [facility] where she had presented on 06/04/2018 with a 2-day history of left- sided facial droop, left-sided weakness, and slurred speech. MRI of the brain showed an acute lacunar infarction in the right posterior internal capsule. Echocardiogram ruled out intracardiac shunt. There was no large vessel occlusion on CT angiogram, and there were no dysrhythmias seen on telemonitoring. She was started on aspirin, as well as clopidogrel and atorvastatin. She was stabilized and transferred to inpatient rehabilitation. She did well in rehabilitation. She regained independence with mobility and activities of daily living, and she was made independent in her room for her last day before discharge. She was able to ambulate 300 feet with a front- wheeled walker. Left-sided weakness worsened with fatigue. She was able to climb and descend 18 stairs with standby assist to contact guard assist. She was independent for ADLs. She was noted to have decreased insight. She was seen by Speech and Language Pathology regarding cognitive issues. The [place] Cognitive Assessment was administered, and she scored 21/30 on 2018, with the cutoff for normal cognition being 26/30. She had prominent memory loss. She was continued on medications from the hospital for secondary prevention of CVA, allergic conjunctivitis and rhinitis, gastroesophageal reflux disorder, and anxiety/depression. Prior to her hospitalization, she was taking naproxen for degenerative joint disease. During her rehabilitation stay, she was adequately managed on acetaminophen. Blood pressure was adequately managed with metoprolol. DISCHARGE PLAN: Disposition is home where she will have assistance from family members. CONDITION: Good. ALLERGIES: There are no known drug allergies. DIET: Regular. ACTIVITY: Ad argenis, but supervision is appropriate for critical cognitive tasks such as medication and financial engineer. MEDICATIONS UPON DISCHARGE: 1. Acetaminophen 650 mg p.o. q.6 h. p.r.n. 2. Aspirin 81 mg p.o. daily, to continue through 07/03/2018, and to increase to 325 mg daily starting 07/04/2018. 3. Atorvastatin 10 mg p.o. at bedtime. 4. Cetirizine 10 mg p.o. at bedtime. 5. Clopidogrel 75 mg p.o. daily through 07/03/2018. 6. Fluoxetine 40 mg p.o. daily. 7. Metoprolol XR 50 mg p.o. daily. 8. Multivitamin 1 p.o. daily. 9. Naphazoline/pheniramine eyedrops 1 to 2 drops to each eye twice daily. 10. Omeprazole/sodium bicarbonate 20 mg p.o. daily. ISSUES TO BE ADDRESSED AT FOLLOWUP: Blood pressure control, lipid control, and secondary prevention of CVA. She can follow up with primary care provider, Mariam Chiang, nurse practitioner, and neurologist, Dr. Tu Beckford, regarding these issues. She will have home PT, OT, and HUMAN CAPITAL MANAGER. TIME SPENT ON DISCHARGE: Greater than 30 minutes was spent on this discharge summary, medication reconciliation, coordination of care, and counseling of patient. The patient was seen and examined on discharge. Copy requested to: KELLI Almonte /[id number]/MODL MTDD
== END 2018-06-17 14:54 | disposition home health service (06) | DRG 57 ==
LOC: BREH 12:04
PROVIDERS: ADMIT Internal Medicine Hospice and Palliative Medicine; ATTEND Internal Medicine Hospice and Palliative Medicine
DX: I69.354 Hemiplegia and hemiparesis following cerebral infarction affecting left non-dominant side (principal); I69.392 Facial weakness following cerebral infarction; I08.1 Rheumatic disorders of both mitral and tricuspid valves; E66.01 Morbid (severe) obesity due to excess calories; I10 Essential (primary) hypertension; K21.9 Gastro-esophageal reflux disease without esophagitis; K58.9 Irritable bowel syndrome, unspecified; R41.3 Other amnesia; H10.13 Acute atopic conjunctivitis, bilateral; J30.9 Allergic rhinitis, unspecified; F41.8 Other specified anxiety disorders; R40.0 Somnolence; Z96.653 Presence of artificial knee joint, bilateral; Z68.31 Body mass index [BMI] 31.0-31.9, adult; Z91.81 History of falling
CPT/HCPCS: 92507-GN; 92523-GN; 97110-GO; 97110-GP; 97112-GP; 97116-GP; 97161-GP; 97166-GO; 97530-GO; 97530-GP; 97535-GO